=== PATIENT | male | born 1950 | race Caucasian/White ===

== ENCOUNTER 2016-07-27 16:06 | Inpatient (IN) ==
[2016-07-27] MEDS ORDERED: TYLENOL PO PRN (16:54)
[2016-07-27] MEDS ORDERED: VANCOMYCIN IV PER PHARMACY MISC SCH (17:15)
[2016-07-27] MEDS: LEVAQUIN 750 MG/D5W 750 MG/150 ML IVPB IV SCH (18:00)
--- NOTE | 2016-07-27 18:29 | HISTORY AND PHYSICAL ---
CHIEF COMPLAINT: Left knee pain and swelling. HISTORY OF PRESENT ILLNESS: The patient is a 66-year-old, white male, followed in my medical practice, who presents stating that on 07/23/2016 he was helping his child move when he had gotten over behind the dryer and bent down on his left knee. He was fitting the dryer hose to the dryer, and was on his knee for several minutes. The next day, he began to have some pain and swelling in the left knee and it has progressively gotten worse with warmth, swelling, redness. He was seen in the office initially on 07/26/2016 and consideration was given to a possible early septic joint, particularly septic prepatellar bursitis. The patient was started on Avelox at 400 mg daily, given a Toradol injection in the office at 30 mg IM and started on daily Mobic that he took first this morning and Dumfries 5 for pain. He has had no known fever. Says he feels fairly good except for pain about his left knee, but he has had worsened redness and swelling down below the left knee and circumferentially about the left knee and also in the left eye. He does have a history of varicose veins in his legs prominently as well. LABS: The patient had lab work done yesterday that showed sedimentation rate of 7, white count 10.7, hemoglobin of 14.7, platelets 234, 83% neutrophils, at 9.2% lymphocytes, 5.9% monocytes. Uric acid level was normal at 5.0 and creatinine was 1.0. Patient has had no history of gout in the past. MEDICATIONS: Prior to admission are Uroxatral 10 mg p.o. daily, Elavil 50 mg p.o. at bedtime, Synthroid 50 mcg p.o. daily and as stated, he has been on the Mobic, Dumfries 5, Avelox started yesterday. ALLERGIES: Penicillin. PAST MEDICAL HISTORY: 1. Interstitial cystitis followed by Dr. Carr, urologist in [place]. 2. Hypothyroidism. 3. BPH. 4. History of left cataract. 5. Right retinal tear with laser treatment October 2014. 6. History of varicose veins. PAST SURGICAL HISTORY: 1. Varicose veins. Laser treatment and sclerosing initially in 2006 and then again in March 2011. 2. TURP 2014. 3. Right cataract removal 2014. IMMUNIZATIONS: Pneumovax 23 given December 2015. Prevnar 13 given 12/04/2014. Influenza vaccination given December 2015. Zostavax given 07/26/2012. FAMILY HISTORY: Notable for nephew and brother with Marfan's syndrome. Aortic aneurysm in his brother who has the Marfan's, brother with hypertension. ND in both grandfathers and his father. No strokes or cancer in the family. Mother with bipolar disorder. Diabetes mellitus in his father. SOCIAL HISTORY: The patient lives in [place]. He is . He has 2 daughters. He is retired now. Recently had worked at a [employer] and [employer]. Prior to that, had worked long-standing at [employer]. Quit smoking in 1981 and has a 10 pack year history of smoking. No alcohol use. REVIEW OF SYSTEMS: Negative except as above. PHYSICAL EXAMINATION: VITAL SIGNS: Blood pressure 132/82, pulse 88, temperature 97. GENERAL: Well-developed well-nourished white male, in no acute distress. SKIN: Warm and dry. There is swelling at the left distal thigh and about the left knee and into the left upper calf area. There is prominent redness in the upper lower extremity below the knee and extending about the left knee and just above the left knee. Most of the swelling is at the anterior left knee, in particular about the prepatellar bursa and is quite tender there and there is prominent warmth and redness. HEENT: Normocephalic, atraumatic. LUCILA, EOMI. Sclerae clear. Oropharynx without redness. Tongue in the midline. NECK: No lymphadenopathy, thyromegaly, JVD, or bruits. CV: RRR without murmur. LUNGS: Clear to auscultation. BACK: No CVA tenderness. ABDOMEN: Soft, nontender, no mass or organomegaly. GENITOURINARY/RECTAL: Deferred. EXTREMITIES: As above. Right lower extremity without redness or warmth. There are prominent varicose veins extending in the right leg and in the left leg. NEUROLOGIC: Cranial nerves 2-12 are intact. Nonfocal. ASSESSMENT: 1. Septic left knee/septic bursitis. 2. Varicose veins in lower extremities. Rule out thrombophlebitis on the left as well. 3. Benign prostatic hypertrophy. 4. Hypothyroidism. 5. Interstitial cystitis. 6. Left cataract. 7. History of right retinal tear. PLAN: We will admit the patient to the hospital. Check blood cultures x2 with ARDS. Check a D- dimer. Repeat CBC, sedimentation rate, CRP, check CMP. Start IV antibiotics in the form of Levaquin and vancomycin. Will ask orthopedics to see the patient in consultation for consideration for aspiration of the left knee. Continue home medications. cc: Jorge Velázquez MD
[2016-07-27 19:41] LABS: MANUAL DIFF NEEDED? NO
[2016-07-27 19:46] LABS: BASO% 0.2 % (0.0-0.8); EOS# 0.25 X1000 (0.0-0.7); EOS% 2.5 % (0.0-10.0); HEMATOCRIT 39.5 % (42.0-52.0); HEMOGLOBIN 13.7 g/dL (14.0-18.0); LYMPH# 0.93 X1000 (1.2-3.4); LYMPH% 9.3 % (20.5-51.1); MCH 29.8 PG (27-31); MCHC 34.7 g/dL (33-37); MCV 86.1 FL (81-99); MONO# 0.61 X1000 (0.11-0.59); MONO% 6.1 % (1.7-9.3); MPV 9.9 FL (7.4-10.4); NEUT% 81.9 % (42.2-75.2); PLT 213 X1000 (130-400); RBC 4.59 XMIL (4.7-6.1)
[2016-07-27 20:00] LABS: HEMOGLOBIN A1C 5.2 % (4.8-6.0)
[2016-07-27 20:21] LABS: AGAP 13; ALKALINE PHOSPHATASE 72 U/L (32-122); BUN 14 mg/dL (8-22); CALCIUM 8.8 mg/dL (8.8-10.2); CHLORIDE 100 mmol/L (98-107); COSMO 277; GOT 22 U/L (10-34); GPT 21 U/L (10-44); POTASSIUM 4.4 mmol/L (3.5-5.1); SODIUM 138 mmol/L (136-145); TCO2 25 mmol/L (25-35); TOTAL BILIRUBIN 0.28 mg/dL (0.20-1.00); TOTAL PROTEIN 7.2 g/dL (6.3-8.3)
[2016-07-27] MEDS: ELAVIL PO SCH (20:26)
[2016-07-27] MEDS: CELEBREX PO SCH (20:26)
[2016-07-27] MEDS: UROXATRAL PO SCH (20:26)
[2016-07-27 20:53] LABS: SED RATE 10 mm/hr (0-15)
[2016-07-27] MEDS ORDERED: VANCOMYCIN 2.5 GM in NS 500 ML IV ONE (21:00)
[2016-07-28] MEDS: DILAUDID IV PRN ×5 (01:09→20:04)
[2016-07-28] MEDS: SYNTHROID PO SCH ×2 (05:40→06:37)
[2016-07-28] MEDS: CELEBREX PO SCH ×2 (08:47→20:04)
--- NOTE | 2016-07-28 11:41 | CONSULTATION ---
DATE OF CONSULTATION: 07/28/2016 ADMITTING PHYSICIAN: Dr. Jorge Velázquez. CONSULTING PHYSICIAN: Dr. Carlitos Smith. CHIEF COMPLAINT: Left knee pain and swelling. HISTORY OF PRESENT ILLNESS: Mr. Brooks is a 66-year-old white male who has experienced left knee pain and swelling since this past Monday. He was working on his knees this weekend. Afterwards, he developed some redness and erythema, which has progressed. He was seen and treated with antibiotics as an outpatient; however, his symptoms worsened and was admitted by Dr. Velázquez for a left knee cellulitis. Orthopedics was consulted to rule out septic arthritis. PRIMARY CARE PROVIDER: Dr. Jorge Velázquez. ALLERGIES: Penicillin. PAST MEDICAL HISTORY: 1. Hypothyroidism./ 2. Benign prostatic hypertrophy. 3. Interstitial cystitis. 4. History of retinal tear. PAST SURGICAL HISTORY: 1. Transurethral resection of prostate. 2. Bilateral varicose vein ablation. 3. Cataract surgery. 4. Left shoulder surgery. SOCIAL HISTORY: The patient is a remote smoker. He is . He maintains a home with his . He is retired. CURRENT MEDICATIONS: 1. Synthroid 50 mcg daily. 2. Alfuzosin extended release 10 mg at bedtime. 3. Elavil 50 mg at bedtime. REVIEW OF SYSTEMS: HEENT: No known history of stroke or cerebrovascular disease. Denies any recent interval change in health unrelated to the current left lower extremity infection. He has a history of hypothyroidism and cataract surgery, for which he previously underwent a cataract removal. Cardiac: No history of coronary artery disease or valvular heart disease. Denies chest pain or other anginal equivalents. Pulmonary: The patient is a remote smoker with no chronic lung disease. Gastrointestinal: Denies any recent unexplained weight loss or weight gain. No nausea, vomiting, diarrhea, or constipation. Genitourinary: He has a history of BPH. He has previously undergone a transurethral resection of the prostate. He is also managed for interstitial cystitis. Neurologic: Denies radicular extremity pain, weakness, or paresthesia. Musculoskeletal: Left knee pain and swelling, other history of varicose veins. PHYSICAL EXAMINATION: General: The patient is resting comfortably in bed. His is at his bedside. He is articulate and able answer all questions fully. HEENT: Head is normocephalic and atraumatic. Pupils are equal, round, react to light. Nares are patent. Throat without exudate. Neck: Supple. Heart: Regular rate and rhythm. No murmurs, gallops, or rubs. Lungs: Clear to auscultation bilaterally. Abdomen: Round. Bowel sounds are present. It is nontender to examination. Genitourinary: Not examined. Neurological: Gross motor function is intact. He has good sensory perception to soft touch. Musculoskeletal: Left lower extremity: He has an extensive demarcated erythema over the anterior aspect of the knee. He has some significant edema. He has pain with range of motion and tenderness to palpation. He is able to bear weight and move about the room as necessary. Neurovascular status is intact, with good peripheral pulse. IMPRESSION: Left knee infection. Rule out septic arthritis. PLAN OF CARE.: We proceeded with a left knee tap and were unable to extract any significant amount of fluid. At this time, it appears to be a soft tissue infection and we agree with antibiotic management, and will continue to follow patient with you as necessary. Thank you for including us in the care of Mr. Brooks. You can reach us at your convenience at any time. Dictated by DANIEL Munoz for Pola Smith MD cc: DANIEL Munoz MD Stephen W. Harbin, MD
--- NOTE | 2016-07-28 13:33 | PROGRESS NOTE ---
DATE: 07/28/2016 SUBJECTIVE: Patient is still having some pain about the left knee but tolerating it with medicine. OBJECTIVE: Afebrile. Pulse 93, respirations 16, blood pressure 151/87, O2 saturation room air 95- 100%.CV: RRR without murmur. Lungs: CTA. Left lower extremity with prominent redness, swelling and warmth especially localized around the left anterior knee more localized around the left prepatellar bursa. There is redness extending up above the knee especially medially in a streak and there is some swelling and redness and warmth extending down into his anterior lower extremity and some in the medial calf area upper aspect. LAB DATA: White count 10, hemoglobin 13.7, platelets 213,000. Sedimentation rate 10. D-dimer 0.24. CMP normal. A1c 5.2. C-reactive protein 16.85. X-ray left knee ordered but canceled and not done for some reason, I am unaware of. ASSESSMENT: 1. Left knee pain swelling, warmth, cellulitis versus septic prepatellar bursitis left knee. 2. Varicose veins in lower extremities. 3. BPH. 4. Hypothyroidism. 5. Interstitial cystitis. 6. Left cataract. 7. History of right retinal tear remote. PLAN: We will reorder the x-rays left knee. Orthopedics has seen the patient, and has tried aspiration of the joint without any fluid able to be obtained. Blood cultures fortunately remain negative at this point. We will continue IV antibiotics in the form of Levaquin, vancomycin, monitor labs and clinical status of the leg, keeping him at bed rest. We will add Lovenox for prophylaxis of DVT. Continue Celebrex and home medications. cc: Jorge Velázquez MD
--- NOTE | 2016-07-28 13:52 | Diag Imaging Result Doc PS360 ---
EXAM: KNEE 3 VIEWS LEFT HISTORY: lt knee cellulitis TECHNIQUE: Three views COMMENT: There is an effusion. There is no evidence of fracture or dislocation. IMPRESSION: Effusion. Superficial soft tissue swelling. Electronically signed by Petey Kat 07/28/2016 1:49 PM
[2016-07-28] MEDS: VANCOMYCIN 2 GM in NS 500 ML IV SCH (15:54)
[2016-07-28] MEDS: LEVAQUIN 750 MG/D5W 750 MG/150 ML IVPB IV SCH (16:15)
[2016-07-28] MEDS: ELAVIL PO SCH (20:04)
[2016-07-28] MEDS: UROXATRAL PO SCH (20:04)
[2016-07-28] MEDS: ZOFRAN IV PRN (22:17)
[2016-07-29 05:50] LABS: MANUAL DIFF NEEDED? NO
[2016-07-29 05:56] LABS: BASO% 0.2 % (0.0-0.8); EOS# 0.38 X1000 (0.0-0.7); EOS% 4.6 % (0.0-10.0); HEMATOCRIT 36.6 % (42.0-52.0); HEMOGLOBIN 12.7 g/dL (14.0-18.0); IMM GRAN# 0.03 X1000 (0.0-0.04); IMM GRAN% 0.4 % (0.0-0.5); LYMPH# 1.01 X1000 (1.2-3.4); LYMPH% 12.1 % (20.5-51.1); MCHC 34.7 g/dL (33-37); MCV 86.3 FL (81-99); MONO# 0.86 X1000 (0.11-0.59); MONO% 10.3 % (1.7-9.3); MPV 9.8 FL (7.4-10.4); NEUT% 72.4 % (42.2-75.2); PLT 197 X1000 (130-400); RBC 4.24 XMIL (4.7-6.1)
[2016-07-29] MEDS: DILAUDID IV PRN ×2 (06:13→22:05)
[2016-07-29] MEDS: SYNTHROID PO SCH (06:14)
[2016-07-29 06:18] LABS: AGAP 9; BUN 15 mg/dL (8-22); CALCIUM 8.6 mg/dL (8.8-10.2); CHLORIDE 102 mmol/L (98-107); COSMO 278; POTASSIUM 4.5 mmol/L (3.5-5.1); SODIUM 139 mmol/L (136-145); TCO2 28 mmol/L (25-35)
--- NOTE | 2016-07-29 08:35 | PROGRESS NOTE ---
DATE: 07/29/2016 SUBJECTIVE: Patient is still having pain about the left knee. Redness has spread up the left medial thigh area mid and distally. There may be slight decreased intensity redness over the knee area, but it has spread outwardly. OBJECTIVE: Vital Signs: Afebrile. Pulse 74, respirations 16, blood pressure 114/66. CV: RRR without murmur. Lungs: Mild crackles left lung base compared to the right. There is minimal there. Good air movement. Abdomen: Nontender and nondistended. No mass or organomegaly. Extremities: As above. Prominent swelling, redness at the left knee, particularly localized about the left prepatellar bursa. There is redness and streak at the left medial thigh to the mid thigh area, some redness below the left knee. X-RAYS: Left knee negative. LABS: White count today is 8.3, hemoglobin 12.7, platelets 197, neutrophils 72, lymphocytes 12, monocytes 10. Sodium 139, potassium 4.5, chloride 102, CO2 28, BUN 15, creatinine 1.0, glucose 86, A1c 5.2. Calcium 8.6. C-reactive protein has risen from 16-48. Blood cultures x2 remain negative. ASSESSMENT: 1. Left knee and leg cellulitis with prepatellar bursitis, inflammatory versus infectious. 2. Varicose veins in lower extremities, rule out phlebitis. 3. Benign prostatic hyperplasia. 4. Hypothyroidism. 5. Interstitial cystitis. 6. Left cataract. PLAN: Continue IV Levaquin and vancomycin. Dr. Smith has tried to aspirate the area, but no fluid was able to be obtained. Continue oral Celebrex 200 mg q. 12 hours[address] I am asking Dr. García to see the patient as well for consultation. MRI has been ordered on his left knee per Dr. Smiht. Patient is on prophylactic Lovenox for DVT prevention. cc: Jorge Velázquez MD
[2016-07-29] MEDS: LOVENOX SUBQ SCH (09:22)
[2016-07-29] MEDS: VANCOMYCIN 2 GM in NS 500 ML IV SCH (09:22)
[2016-07-29] MEDS: CELEBREX PO SCH ×3 (09:22→22:00)
--- NOTE | 2016-07-29 09:23 | Diag Imaging Result Doc PS360 ---
MRI LOW EXT JT W/WO CON-LEFT - 07/29/2016 INDICATION: Left Knee abscess TECHNIQUE: MRI of the left knee without and with intravenous contrast COMPARISON: X-rays from 07/28/2016 FINDINGS: There is significant, enhancing soft tissue swelling anterior to the patella. There is no focal or drainable fluid collection, but there is a lot of indistinct fluid in the soft tissue here. All of the superficial subcutaneous tissues here are enhancing. There is a small suprapatellar joint effusion, with some synovial enhancement. Bone marrow signal is normal. The extensor mechanism is normal. There is some mild articular cartilage thinning at the medial joint compartment. Other joint spaces are preserved. There are small nondisplaced oblique tears of the posterior horns of the medial and lateral menisci. The ACL and PCL are intact. The collateral ligaments are intact. IMPRESSION: 1. Significant soft tissue inflammation with indistinct fluid at the prepatellar soft tissues of the knee. No focal drainable fluid collection. 2. No evidence of bony involvement. 3. Small joint effusion, nonspecific. 4. Small tears of the posterior horns of the menisci bilaterally. 5. Mild chondromalacia of the medial joint compartment. Electronically signed by Isai Crawford 07/29/2016 9:21 AM
[2016-07-29] MEDS ORDERED: NS 250 ML ONE (11:19)
[2016-07-29 11:33] LABS: INR 1.01; PROTIME 10.6 Seconds (9.2-11.7)
[2016-07-29] MEDS: MAXIPIME 2 GM/NS 2 GM/100 ML IVPB IV SCH ×2 (12:22→22:05)
[2016-07-29 13:31] LABS: LYME DISEASE SCREEN SEE COMMENTS
--- NOTE | 2016-07-29 13:32 | PROGRESS NOTE ---
DATE: 07/29/2016 SUBJECTIVE: Mr. Brooks is seen today for his prepatellar bursitis. He underwent an MRI of the knee this morning. Review of the MRI showed no drainable abscess or soft tissue fluid collection. He does have evidence of prepatellar cellulitis and bursitis. There is no surgery indicated at this point in time. He can be treated with IV antibiotics. I will be unavailable over the weekend, but Dr. Fuentes will be covering commercial parts professional if needed. cc: MD Jorge Mcneal MD
[2016-07-29] MEDS: UROXATRAL PO SCH ×2 (19:56→22:01)
[2016-07-29] MEDS: ELAVIL PO SCH ×2 (19:57→22:01)
[2016-07-30] MEDS: VANCOMYCIN 2 GM in NS 500 ML IV SCH ×2 (02:33→22:04)
[2016-07-30] MEDS: SYNTHROID PO SCH (06:08)
[2016-07-30] MEDS: CELEBREX PO SCH ×2 (08:41→20:17)
[2016-07-30] MEDS: LOVENOX SUBQ SCH (08:41)
[2016-07-30] MEDS: MAXIPIME 2 GM/NS 2 GM/100 ML IVPB IV SCH (11:02)
--- NOTE | 2016-07-30 12:11 | PROGRESS NOTE ---
DATE: 07/30/2016 SUBJECTIVE: Patient overall is stable. Some pain about the knee. Swelling has seemed to localize a little more toward the left prepatellar bursa. Still some streaking up the left medial thigh, but the redness has not progressed on up into the groin. OBJECTIVE: Vital Signs: Afebrile, pulse 86, respirations 14, blood pressure 135/77. CV: RRR without murmur. Lungs: Fairly clear today. Extremities: Left knee with moderate to severe swelling about the left prepatellar bursa and left knee anteriorly. There is some redness and streaking up the left medial thigh and down below the left medial knee. RADIOLOGICAL DATA: MRI results from left knee reviewed from yesterday. ASSESSMENT: 1. Left prepatellar bursitis with cellulitis, modest improvement. 2. Varicose veins in lower extremities. 3. Benign prostatic hypertrophy. 4. Hypothyroidism. 5. Interstitial cystitis. 6. Left cataract. PLAN: Dr. García has changed the medication to cefepime and continued the vancomycin. Will continue those. He has PICC line in place on the right and, if he continues to do well, we will plan on discharging him home with outpatient IV antibiotics for several days. He will continue on Celebrex 200 mg p.o. q. 12 hours presently, and his home medications of Uroxatral and Elavil. Will observe the next 24 hours with possible discharge tomorrow if he does well. cc: Jorge Velázquez MD
[2016-07-30] MEDS: ZOFRAN IV PRN (15:38)
[2016-07-30] MEDS: UROXATRAL PO SCH (20:17)
[2016-07-30] MEDS: ELAVIL PO SCH (20:17)
[2016-07-31] MEDS: MAXIPIME 2 GM/NS 2 GM/100 ML IVPB IV SCH ×2 (00:39→10:35)
[2016-07-31] MEDS: SYNTHROID PO SCH (06:07)
[2016-07-31] MEDS: DILAUDID IV PRN ×2 (06:09→11:51)
[2016-07-31] MEDS: CELEBREX PO SCH (09:27)
[2016-07-31] MEDS: LOVENOX SUBQ SCH (09:27)
--- NOTE | 2016-07-31 10:27 | PROGRESS NOTE ---
DATE: 07/31/2016 SUBJECTIVE: The patient says his knee is doing better. He says it is about a 3rd of the size that it was previously. It is still very swollen, however, and red, consistent with cellulitis. OBJECTIVE: Vital Signs: Stable with a temperature of 98 degrees Fahrenheit, pulse 65 and regular, respirations 18, blood pressure 125/80, O2 saturation on room air is 99%. He did not have any fever yesterday or actually any fever while in the hospital. HEENT: Normocephalic. EOMs intact. PERRLA. Throat clear. Lungs: Clear to auscultation and percussion without rhonchi, rales, or wheezes. Heart: Regular rate rhythm without murmurs, gallops, or friction rubs. Abdomen: Soft with active bowel sounds. No organomegaly or tenderness. Extremities: Left knee is swollen, red, and appears to be infected. ASSESSMENT AND PLAN: He is on vancomycin and cefepime. I talked with Dr. Velázquez earlier this morning. He asked me to see him. Arrangements have been in the working for him to go home and to have intravenous vancomycin and cefepime. Dr. Velázquez also wanted him on Celebrex 200 mg by mouth twice a day and Avella 10 half to a whole every 6 hours as needed for pain, and 20 of those. I have called social media community manager to see if [facility] has the antibiotics arranged so that the patient will not miss any doses of intravenous antibiotics. He is to get another dose at 11 o'clock today. He can be discharged after that if [facility] is ready to pharmacy picking tech and start giving him his intravenous antibiotics. If not, we will keep him here today. Dr. Velázquez will be on tomorrow and he can see if they are ready tomorrow or on Monday. I did talk with the patient's . She stated that she had talked with [facility] either yesterday or the day before, and the only question was, at that time, was about whether they could get the antibiotics over the weekend or not. If they can and they are ready to go so that he does not miss a dosage, we will discharge him. Otherwise, we will keep him over until that has been arranged. cc: MD Jorge Feldman Jr, MD
--- NOTE | 2016-07-31 10:36 | EMERGENCY ROOM SUMMARY ---
SUBJECTIVE: The patient overall is doing a lot better. He states that his pain and swelling about the knee have significantly improved. He states that he still has some pain with bending of the knee. Denies any fevers or chills. OBJECTIVE: Vital Signs: His current vital signs are temperature 98 degrees, pulse 65, respirations 18, blood pressure 125/80. Extremities: On examination of the left lower extremity, he still has some diffuse erythema directly over the prepatellar bursa. No fluctuance and no drainage. He has no effusion of the knee. He has some slight red streaking over the medial aspect of the thigh, extending proximally. This has receded within the boundary of the previous skin markings. His compartments are soft and nontender. He is grossly neurovascularly intact distally. ASSESSMENT: Left knee prepatellar bursitis with cellulitis, improved. PLAN: Today, I discussed with him he overall has significantly improved over the past 24-48 hours with IV antibiotics. Recommend continuing IV antibiotics per medicine. From an orthopedic standpoint, he will need to follow up with Dr. Smith as an outpatient this next week for close evaluation and followup. If there are any question or concerns, please contact me. cc: DO Jorge Gutierrez MD
[2016-07-31 11:33] VITALS: BP 132/80
[2016-07-31] MEDS: ZOFRAN IV PRN (11:51)
--- NOTE | 2016-08-22 05:29 | DISCHARGE SUMMARY ---
ADMISSION DATE: 07/27/2016 DISCHARGE DATE: 07/31/2016 DIAGNOSES: 1. Left prepatellar bursitis with cellulitis improving. 2. Varicose veins lower extremities. 3. Benign prostatic hypertrophy. 4. Hypothyroidism. 5. Interstitial cystitis. 6. Left cataract. PROCEDURES: 1. X-ray of left knee done 07/28/2016 revealing effusion at the left knee and superficial soft tissue swelling. Otherwise negative. 2. Left lower extremity MRI revealing significant soft-tissue inflammation with indistinct fluid at the prepatellar soft tissues of the left knee. No focal drainable fluid collection. No evidence of bony involvement. Small joint effusion nonspecific. Small pairs of the posterior horns of the menisci bilaterally. Mild chondromalacia to the medial joint compartment. CONSULTANTS: 1. Dr. Carlitos Smith, Orthopedics. 2. Dr. Rashaun García, Infectious Disease. REASON FOR ADMISSION AND HOSPITAL COURSE: The patient is a 66-year-old white male followed in my medical practice. 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 He had developed some swelling at the left prepatellar bursa and left knee worsened despite starting treatment through the office on 07/26 with Avelox, Toradol injection and daily Mobic. Patient saw worsening and was admitted to the hospital for further treatment. He was started on IV antibiotics and these were tailored per Dr. García who saw the patient in consultation. Orthopedics saw the patient as well and tried to aspirate the joint without any fluid. Dr. García also aspirated the joint with no growth. Blood cultures remained negative. PICC line was placed and the patient was able to be receive discharge with IV antibiotics of cefepime and vancomycin at home. X-rays and MRI of the left knee were as above. White count on admission was 10. Discharge 8. Platelets 197,000. At discharge, hemoglobin 12.7. Sodium 139, potassium 4.5, BUN 15, and creatinine 1.0. C-reactive protein went up to as high as 48. D-dimer 0.24. INR 1.01. Lyme disease titer negative. Patient improved where he could receive the outpatient IV antibiotics for a total of 2 weeks as outlined per Dr. García. DISCHARGE MEDICATIONS: 1. Synthroid 50 mcg p.o. daily. 2. Amitriptyline 50 mg p.o. at bedtime. 3. Uroxatral 10 mg p.o. at bedtime. cc: Jorge Velázquez MD
== END 2016-07-31 12:27 | disposition home health service (06) ==
LOC: DIRADM 16:06 → 4N 17:05
PROVIDERS: ADMIT Family Medicine; ATTEND Family Medicine